=== PATIENT | male | born 1980 | race African-American/Black ===

== ENCOUNTER 2018-01-15 15:27 | Emergency (ER) | payer OTHER ==
--- NOTE | 2018-01-15 16:46 | RADIOLOGY REPORT (SQ) ---
EXAM DESCRIPTION: CT CERVICAL SPINE WITHOUT COMPLETED DATE/TIME: 01/15/2018 4:17 pm REASON FOR STUDY: neck trauma COMPARISON: None. TECHNIQUE: Axial images acquired through the cervical spine without intravenous contrast. Images re viewed with lung, soft tissue and bone windows. Reconstructed coronal and sagittal MPR images review ed. Images stored on PACS. All CT scanners at this facility use dose modulation, iterative reconstruction, and/or weight based d osing when appropriate to reduce radiation dose to as low as reasonably achievable (ALARA). [facility]: Dose Right [facility]: CareDose [facility]: Dose Right [facility]: Teradose 4D [facility]: Real Time Wine RADIATION DOSE: CT Rad equipment meets quality standard of care and radiation dose reduction techniq ues were employed. CTDIvol: 22.5 mGy. DLP: 509 mGy-cm. mGy. LIMITATIONS: None. FINDINGS: ALIGNMENT: Anatomic. MINERALIZATION: Normal. VERTEBRAL BODIES: No fractures or dislocation. DISCS: Craniocervical junction, C1-2 are unremarkable. Small central disc bulge at C2-3 with borderline central canal narrowing. Mild right foraminal narro wing. Moderate to high-grade left foraminal narrowing from facet and uncovertebral hypertrophy. Remainder of the cervical disc levels are unremarkable. FACETS, LATERAL MASSES, POSTERIOR ELEMENTS: No fractures. No dislocation. No acute findings. HARDWARE: None in the spine. VISUALIZED RIBS: No fractures. LUNG APICES AND SOFT TISSUES: No significant or acute findings. OTHER: No other significant finding. IMPRESSION: No acute fracture or malalignment. TECHNICAL DOCUMENTATION: JOB ID: [id number] Quality ID # [id number]: Final reports with documentation of one or more dose reduction techniques (e.g., Au tomated exposure control, adjustment of the mA and/or kV according to patient size, use of iterative reconstruction technique) 2010 [employer]- All Rights Reserved Reading location - IP/workstation name: [email or web address]
--- NOTE | 2018-01-15 17:06 | ER Document Report ---
ED Neck/Back Problem - General Chief Complaint: Neck Injury Stated Complaint: NECK INJURY Time Seen by Provider: 01/15/18 15:53 Mode of Arrival: Ambulatory Information source: Patient Notes: Patient is a 37-year-old male comes emergency room complaining of neck pain. Patient states that he was doing wrestling which he did 2 this morning around noon time and was in a wrestling move when he landed on his neck with a another competitor landing on his neck as well. He felt a crunch and pain. He has discomfort now with range of motion of his neck. And he states he is concerned when it comes to the neck injury since he is in the [employer]. He denies any loss of urine or stool no numbness or radiation down the arms or back. TRAVEL OUTSIDE OF THE [place] IN LAST 30 DAYS: No - HPI Patient complains to provider of: Pain, Injury, Neck Onset: This morning Where: Sports Onset: Sudden Timing: Constant, Better Quality of pain: No pain, Achy, Throbbing Severity: Moderate Pain Level: 3 Context: Other Recent injury: Yes Exacerbated by: Movement of neck Relieved by: Remaining still Similar symptoms previously: No Recently seen / treated by doctor: No - Related Data Allergies/Adverse Reactions: No Known Allergies Allergy (Unverified 01/15/18 16:30) Past Medical History - General Information source: Patient - Social History Smoking Status: Current Some Day Smoker Cigarette use (# per day): Yes - Half-pack Chew tobacco use (# tins/day): No Smoking Education Provided: Yes Frequency of alcohol use: Social Drug Abuse: None Family History: Reviewed & Not Pertinent Patient has suicidal ideation: No Patient has homicidal ideation: No Renal/ Medical History: Denies: Hx Peritoneal Dialysis Review of Systems - Review of Systems Constitutional: No symptoms reported EENT: No symptoms reported Cardiovascular: No symptoms reported Respiratory: No symptoms reported Gastrointestinal: No symptoms reported Genitourinary: No symptoms reported Male Genitourinary: No symptoms reported Musculoskeletal: Muscle pain, Neck pain Skin: No symptoms reported Hematologic/Lymphatic: No symptoms reported Neurological/Psychological: No symptoms reported -: Yes All other systems reviewed and negative Physical Exam - Vital signs Vitals: Vital signs had not been documented when I was dictating this. Afterwards I will looked him up and they are normal. Interpretation: Normal - Notes Notes: Nourished well-developed male no apparent distress slightly uncomfortable appearing - General General appearance: Alert - HEENT Head: Normocephalic, Atraumatic Eyes: Normal - Respiratory Respiratory status: No respiratory distress Chest status: Nontender Breath sounds: Normal. No: Rales, Rhonchi, Stridor, Wheezing Chest palpation: Normal - Cardiovascular Rhythm: Regular Heart sounds: Normal auscultation Murmur: No - Back Back: Normal, Nontender, Vertebra tenderness, Other - Examination of patient's cervical spine shows moderate amount of tenderness to the proximal portion around C1-C2 area to palpation and at upper part of the base of the skull. He has limited rotation right and left and limited flexion extension.. No: Deformity/step-off, CVA tenderness, Scars - Extremities General upper extremity: Normal inspection, Nontender, Normal ROM, Normal strength General lower extremity: Normal inspection, Nontender, Normal ROM, Normal strength - Neurological Neuro grossly intact: Yes Cognition: Normal Orientation: AAOx4 [facility] Coma Scale Eye Opening: Spontaneous Raphael Coma Scale Verbal: Oriented Raphael Coma Scale Motor: Obeys Commands Raphael Coma Scale Total: 15 Speech: Normal Course - Re-evaluation Re-evalutation: 01/15/18 17:12 Evaluation patient after his stay shows him to be improved. CT of the neck was negative. He has been informed not to do any kind of contact sports for the next 2-3 days. Discharge - Discharge Clinical Impression: Cervical strain Qualifiers: Encounter type: initial encounter Qualified Code(s): S16.1XXA - Strain of muscle, fascia and tendon at neck level, initial encounter Disposition: HOME, SELF-CARE Instructions: Neck Injury (Cervical Strain) ([facility]) Additional Instructions: Home today ice to the area 3 times a day for the next couple of days. Ibuprofen for discomfort and pain since it works on inflammation. You may alternate that with Tylenol. Avoid any type of strenuous activity that would aggravate the neck area for the next 3-4 days. Return to ER if any concerns or problems. Forms: Smoking Cessation Education
[2018-01-15 17:07] VITALS: BP 128/83
== END 2018-01-15 17:11 | disposition home or self-care (01) ==
LOC: ER 15:27
DX: S16.1XXA Strain of muscle, fascia and tendon at neck level, initial encounter (principal); F17.210 Nicotine dependence, cigarettes, uncomplicated; X58.XXXA Exposure to other specified factors, initial encounter; Y93.72 Activity, wrestling; Y92.39 Other specified sports and athletic area as the place of occurrence of the external cause
CPT/HCPCS: 72125; 99283